=== PATIENT | female | born 1940 | race Two or more races ===

== ENCOUNTER 2016-05-30 18:43 | Observation (INO) | payer MEDICAID ==
[2016-05-30 19:37] LABS: ABSOLUTE NEUTROPHIL COUNT 5.4 K/mm3 (1.8-7.7); BASO % 0.3 % (0.2-1.0); EOS # 0.1 (0.0-0.5); EOS % 1.5 % (0.9-2.9); HEMATOCRIT 22.2 % (37.0-47.0); IMM NEUT% 0.2 % (0-1); LYMPH # 2.6 (1.0-4.8); LYMPH % 28.9 % (15-45); MEAN CELL VOLUME 60.3 fl (81.0-99.0); MEAN CORPUSCULAR HEMOGLOBIN 16.3 pg (27.0-31.0); MEAN PLATELET VOLUME 8.9 fl (7.4-10.4); MONO # 0.7 (0.0-0.8); MONO % 7.8 % (4-12); NEUT % 61.3 % (43-75); PLATELET COUNT 460 K/mm3 (130-400)
[2016-05-30 19:56] LABS: ALB/GLOB RATIO 1.3 (>1.0); ALBUMIN 3.8 gm/dL (3.5-5.7); CALCIUM 8.8 mg/dL (8.6-10.3)
--- NOTE | 2016-05-30 19:58 | RAD ---
05/30/2016 7:53 PM CHEST - 2 VIEWS History: Patient is lethargic Comparison: 01/11/2016 Findings: Two views of the chest are obtained. The lungs are clear with out effusion or pneumothorax. The cardiomediastinal silhouette is unremarkable.. The osseous structures are intact.. IMPRESSION: No acute intrathoracic process.
[2016-05-30 20:16] LABS: URINE BILIRUBIN NEGATIVE (NEGATIVE); URINE BLOOD TRACE (NEGATIVE); URINE GLUCOSE (UA) NEGATIVE (NEGATIVE); URINE LEUKOCYTE ESTERASE TRACE (NEGATIVE); URINE NITRITE NEGATIVE (NEGATIVE); URINE PROTEIN NEGATIVE (NEGATIVE); URINE UROBILINOGEN NORMAL (0-1 mg/dl)
[2016-05-30 20:17] LABS: URINE APPEARANCE CLEAR; URINE COLOR STRAW
[2016-05-30 20:23] LABS: URINE BACTERIA 2+; URINE EPITHELIAL CELLS 0 /hpf; URINE RBC 0-2 /hpf; URINE WBC 0-2 /hpf
[2016-05-30 20:46] LABS: PLATELET ESTIMATE INCREASED (NORMAL)
[2016-05-30 20:47] LABS: ANISOCYTOSIS 1+; HYPOCHROMIA 1+
[2016-05-30 21:27] VITALS: BMI 26.4
[2016-05-30] MEDS ORDERED: PNEUMOCOCCAL 23-VAL P-SAC VAC 0.5 ML VIAL IM V ONE (21:40)
[2016-05-30] MEDS ORDERED: BLISTEX LIPSTICK 1 EACH TP PRN (22:08)
[2016-05-30] MEDS ORDERED: ACETAMINOPHEN 325 MG TABLET PO PRN (22:08)
[2016-05-30] MEDS ORDERED: DIPHENHYDRAMINE HCL 50 MG CAPSULE PO PRN (22:08)
[2016-05-30] MEDS ORDERED: MENTHOL/CETYLPYRD 1 EACH LOZENGE PO PRN (22:08)
[2016-05-30] MEDS ORDERED: BISACODYL 10 MG SUP PR PRN (22:08)
[2016-05-30] MEDS ORDERED: FUROSEMIDE 20 MG/2 ML VIAL IV ONE (22:08)
[2016-05-30] MEDS ORDERED: SODIUM CHLORIDE 0.9% 100 ML IV PRN (22:08)
[2016-05-30] MEDS ORDERED: BISACODYL 5 MG TABLET.EC PO PRN (22:08)
[2016-05-30] MEDS ORDERED: MAGNESIUM HYDROXIDE 30 ML UDCUP PO PRN (22:08)
[2016-05-30] MEDS ORDERED: IRON SUCROSE COMPLEX 200 MG in SODIUM CHLORIDE 0.9% 100 ML IV ONE (22:11)
[2016-05-30] MEDS ORDERED: BLOOD Y PLUMSET W/CASSETTE ONE (22:26)
[2016-05-30] MEDS: SODIUM CHLORIDE 0.9% 500 ML IV PRN (22:27)
[2016-05-31 01:35] LABS: IRON 6 ug/dL (50-212); TOTAL IRON BINDING CAPACITY 475 ug/dL (261-478); TRANSFERRIN 339 mg/dL (203-362)
[2016-05-31] MEDS ORDERED: BLOOD Y PLUMSET W/CASSETTE ONE (02:01)
[2016-05-31] MEDS ORDERED: FUROSEMIDE 20 MG/2 ML VIAL ONE (02:04)
[2016-05-31] MEDS: SODIUM CHLORIDE 0.9% 500 ML IV PRN (02:15)
[2016-05-31 07:06] LABS: HEMATOCRIT 27.7 % (37.0-47.0); HEMOGLOBIN 8.4 gm/l (12.0-16.0); MEAN CELL VOLUME 65.3 fl (81.0-99.0); MEAN CORPUSCULAR HEMOGLOBIN 19.8 pg (27.0-31.0); MEAN CORPUSCULAR HGB CONC 30.3 g/dl (33.0-37.0); RED CELL DISTRIBUTION WIDTH 25.2 % (11.5-14.5)
--- NOTE | 2016-05-31 08:22 | HP ---
Yuly Palacios [id number] DATE OF ADMISSION: 05/30/2016 CHIEF COMPLAINT: Fatigue. HISTORY OF PRESENT ILLNESS: The patient is a 75-year-old female reported to have lower energy over the last several weeks. She has not had a prior history of this. She has had no blood loss noted. No black tarry stools. No hematemesis. She has never had a colonoscopy nor an EGD. She does not take any antiinflammatories, does not use alcohol. She has had no prior history of transfusions. She does not have menses and she does not have any known thalassemia or family history of significant anemia. PAST MEDICAL HISTORY: Reported to be negative. PAST SURGICAL HISTORY: She had a umbilical hernia repair. She has had a skin cancer removed from her face. ALLERGIES: None. MEDICATIONS: 1. Losartan 25 mg daily. 2. Metoprolol 50 mg by mouth twice daily. 3. Atorvastatin 10 mg daily. 4. Acetaminophen as needed. SOCIAL HISTORY: She grew up in [place], but has been here in [facility] for 20 years. She lives with her family in [place]. She is from her who lives in [place]. No smoking, no alcohol. Pets include a dog. Hobbies, reported none. Her daughter reports she is quite healthy and could even run. FAMILY HISTORY: Father at 70 of cancer. Mom at age 82 of myocardial infarction. No family history of colon cancer. REVIEW OF SYSTEMS: Eyes are okay. Ears okay. Nose okay. Mouth is okay. Neck is okay. No special shortness of breath although, she has been weaker just recently. No heart complaints. No stomach complaints. No breast complaints. No urinary complaints. No menses. Arms and legs have been okay. No history of stroke. She had the skin cancer on her face otherwise unremarkable. PHYSICAL EXAMINATION: GENERAL: Nontoxic pale female. VITAL SIGNS: Temperature 98.6, blood pressure 161/68, respirations 16, 97% saturation on room air. HEENT: Head is normocephalic, atraumatic. Eyes are unremarkable. Ears are normal. Nose is normal. Mouth is unremarkable. Dentition is good. NECK: Unremarkable. LUNGS: Clear to auscultation bilaterally. HEART: Tachycardic. Systolic flow heard. ABDOMEN: Umbilical hernia scar is noted. Soft bruit is noted in the upper abdomen. No rebound, no guarding. GENITOURINARY: Deferred. BREAST: Deferred. EXTREMITIES: Pulses are good throughout. Feet with onychomycosis, but otherwise skin in good repair. No clubbing, cyanosis, or edema. SKIN: Somewhat pale. NEURO: Cranial nerves are intact. Speech is clear and appropriate. She answers appropriately. LABORATORY: White count 8.9, hemoglobin 6.0, platelets 460. Her MCV is low at 60.3 with an RDW of 19.0. Sodium 141, potassium 3.5, chloride 106, CO2 25, BUN 11, creatinine 0.6, glucose 141, calcium is 8.8. LFT's are normal. Urinalysis specific gravity of 1.010, negative otherwise. DIAGNOSTICS: Chest x-ray no acute changes. ASSESSMENT AND PLAN: 1. Microcytic anemia, suspect gradually worsened chronic anemia from blood loss. We will be checking iron studies and a hemoccult. Plan to give packed red cells x2 units and reassess in the morning. Also anticipate use of Venofer and iron sulfate orally and recommended a follow up endoscopy and colonoscopy as an outpatient. 2. Hypertension. We will continue on current medications. 3. Dyslipidemia. She is currently on medication. 4. Venous thrombosis prophylaxis felt to be low. 5. Full code status. 6. Mild hypokalemia. Anticipate supplement with potassium. JOB: [id number] CC: [facility]
[2016-05-31] MEDS ORDERED: PUMP TUBING ONE (08:55)
[2016-05-31] MEDS ORDERED: LOSARTAN POTASSIUM 50 MG TABLET PO SCH (09:00)
[2016-05-31] MEDS ORDERED: IRON SUCROSE COMPLEX 200 MG in SODIUM CHLORIDE 0.9% 100 ML IV ONE (09:00)
[2016-05-31] MEDS ORDERED: FERROUS SULFATE (65 Fe) 325 MG TABLET PO SCH (09:00)
[2016-05-31] MEDS ORDERED: POTASSIUM CHLORIDE 10 MEQ TAB.SR PO SCH (09:00)
[2016-05-31] MEDS ORDERED: METOPROLOL TARTRATE 50 MG TABLET PO SCH (09:00)
[2016-05-31] MEDS ORDERED: DOCUSATE SODIUM 100 MG CAPSULE PO SCH (09:00)
[2016-05-31 10:06] VITALS: BP 144/62
[2016-05-31] MEDS ORDERED: ATORVASTATIN CALCIUM 10 MG TABLET PO SCH (21:00)
== END 2016-05-31 13:30 | disposition home or self-care (01) ==
LOC: ED 18:43 → MS 20:29
PROVIDERS: ADMIT Family Medicine; ATTEND Family Medicine
DX: D50.9 Iron deficiency anemia, unspecified (principal); I10 Essential (primary) hypertension; E78.5 Hyperlipidemia, unspecified; E87.6 Hypokalemia; Z23 Encounter for immunization
CPT/HCPCS: 90732; 85027; 85025; 87086; 80053; 82728; 83540; 83550; 87186; 81001; 71020; 86920; 86922; 86921; 86901; 86850 ×3; 99285 ×2; 93005; A9270 ×4; J1756; J1940; J7040 ×2; J7050 ×2; P9016 ×2

== ENCOUNTER 2016-08-14 07:59 | Day surgery (SDC) | payer OTHER, MEDICAID ==
[~2016-08-14 07:59] MED LIST: FENTANYL 250 MCG/5 ML AMP IV PRN; LACTATED RINGERS 1,000 ML IV SCH; MIDAZOLAM HCL 5 MG/5 ML VIAL IV PRN
[2016-08-14] MEDS ORDERED: LACTATED RINGERS 1,000 ML ONE (08:12)
[2016-08-14] MEDS ORDERED: IV START KIT ONE (08:12)
[2016-08-14] MEDS ORDERED: MIDAZOLAM HCL 5 MG/5 ML VIAL ONE (08:31)
[2016-08-14] MEDS ORDERED: FENTANYL 250 MCG/5 ML AMP ONE (08:31)
--- NOTE | 2016-08-16 14:59 | SURGPATH ---
[facility] [address] [place] [id number] Patient Name: AYO FREEMAN MR#: [id number] : 1940 Gender: F Specimen #: [id number] Collected: 08/14/2016 Received: 08/15/2016 Reported: 08/16/2016 Submitting Phys: GARFIELD PARRY Copy To Phys: [facility] ENG Clinical History / Pre-Operative Diagnosis: IRON DEFICIENCY ANEMIA Specimen Source / Surgical Procedure Performed: #1-SIGMOID POLYP AT 15 CM; #2-DISTAL TRANSVERSE COLON POLYP; #3-RECTAL POLYP AT 8 CM Interpretation: 1. SIGMOID COLON, POLYP AT 15 CM, BIOPSY: - INFLAMMATORY POLYP 2. DISTAL TRANSVERSE COLON POLYP, BIOPSY: - BENIGN MUCOSAL TAG 3. RECTUM, POLYP, BIOPSY: - TUBULAR ADENOMA Electronically Signed Out Genny Charles M.D. Gross Description: #1 The specimen is received in a formalin filled container labeled with the patient's name and "sigmoid polyp at 15 cm". A single oliver biopsy is 0.4 cm. Totally embedded in cassette #1. #2 The specimen is received in a formalin filled container labeled with the patient's name and "distal transverse colon polyp". Three gross-oliver biopsies are 0.3, 0.3 and 0.4 cm. Totally embedded in cassette #2. #3 The specimen is received in a formalin filled container labeled with the patient's name and "rectal polyp at 8 cm". A nodular, polypoid, dark pink-oliver biopsy is 0.7 x 0.6 x 0.5 cm. Bisected. Totally embedded in cassette #3. Dianne Kaiser Microscopic Description: 1. Sections show colonic mucosa with an area of mildly distorted crypt architecture and edematous lamina propria. There is no dysplasia. 2. Sections show fragments of colonic mucosa with a small lymphoid aggregate. No other abnormalities are noted. 3. Sections show fragments of adenomatous colonic mucosa without high grade dysplasia. 1: 08665 2: 33192 3: 99438 D12.8
== END 2016-08-14 10:15 | disposition home or self-care (01) ==
LOC: SDC 07:59
PROVIDERS: ATTEND Internal Medicine Gastroenterology
PROC: 0DBP8ZX Excision of Rectum, Via Natural or Artificial Opening Endoscopic, Diagnostic (ICD-10-PCS; principal; 2016-08-14)
PROC: 0DBN8ZX Excision of Sigmoid Colon, Via Natural or Artificial Opening Endoscopic, Diagnostic (ICD-10-PCS; 2016-08-14)
PROC: 0DBL8ZX Excision of Transverse Colon, Via Natural or Artificial Opening Endoscopic, Diagnostic (ICD-10-PCS; 2016-08-14)
DX: D50.9 Iron deficiency anemia, unspecified (principal); E78.5 Hyperlipidemia, unspecified; I10 Essential (primary) hypertension; D12.8 Benign neoplasm of rectum; K51.40 Inflammatory polyps of colon without complications; K63.5 Polyp of colon
CPT/HCPCS: 45385; 45380; J3010; J2250; J7120